=== PATIENT | female | born 1965 | race Caucasian/White ===

== ENCOUNTER 2022-01-28 18:52 | Emergency (ER) | payer BC ==
[2022-01-28] MEDS ORDERED: Ondansetron ODT 4 MG TAB ONE (19:26)
[2022-01-28] MEDS ORDERED: Morphine 4 MG/ML VIAL ONE (19:26)
[2022-01-28] MEDS ORDERED: traMADol HCl 50 MG TAB ONE (20:04)
== END 2022-01-28 20:15 | disposition home or self-care (01) ==
LOC: BURERS 18:52
DX: S43.401A Unspecified sprain of right shoulder joint, initial encounter (principal); X50.9XXA Other and unspecified overexertion or strenuous movements or postures, initial encounter; I10 Essential (primary) hypertension
CPT/HCPCS: 96372; J2270; Q0162